=== PATIENT | female | born 1950 | race Caucasian/White ===

== ENCOUNTER 2017-09-07 07:06 | Day surgery (SDC) | payer OTHER ==
[~2017-09-07] VITALS: Ht 162.6 cm; Wt 65.5 kg
[~2017-09-07 07:06] MED LIST: IBUP200C70 PO; ZOC10 PO
[2017-09-07 07:40] VITALS: Ht 162.6 cm; Wt 65.5 kg
[2017-09-07] MEDS ORDERED: AMLO2.5T78 PO (07:52)
[2017-09-07] MEDS ORDERED: RANI150T5 PO (07:52)
[2017-09-07 08:03] VITALS: BP 140/70; PULSE 74; RESP 12
--- NOTE | 2017-09-07 08:53 | OPPN ---
Date/Time of Note Date/Time of Note DATE: 09/07/17 TIME: 08:52 Proc Note GI Procedure Date 09/07/17 Indication: treatment Pre-procedure Diagnosis Dysphagia Post-procedure Diagnosis Esophageal ring Procedure Performed: Endoscopy Surgeon see signature line Mattress Spring [place] none Anesthesia Type: moderate sedation Tourniquet Time none EBL none Transfusion required none Biopsy 1: 4 biopsies from the stomach, one biopsy from the esophagus Grafts/Implants none Tubes/Drains none Complication(s) none Disposition: PACU Procedure Description EGD with biopsy EGD with dilatation of the esophagus distal part up to 16 mm MANUEL NICE MD Sep 07, 2017 08:53
[2017-09-07] MEDS ORDERED: FENTAnyl 50 MCG/ML VIAL ONE (09:02)
[2017-09-07] MEDS ORDERED: MIDAZOLAM 1 MG/ML 2 ML INJ ONE ×3 (09:02)
[2017-09-07 09:15] VITALS: BP 114/55; RESP 18
--- NOTE | 2017-09-07 16:29 | GILP ---
DATE OF PROCEDURE: 09/07/2017 PROCEDURE PERFORMED: Esophagogastroduodenoscopy with biopsy and also esophageal dilatation. INDICATIONS: The patient is a 67-year-old female who complains of dysphagia. The purpose is to jaelyn luate upper GI tract and find out the cause of her dysphagia. The risks of the procedure, related a nd unrelated complications, sedative risks, alternatives discussed and informed consent was obtained . DESCRIPTION OF PROCEDURE: The patient was brought to the GI lab, sedated with Versed 5 mg, fentanyl 100 mg. After optimum sedation, scope was passed with much ease into esophagus. There was an incom plete ring about the GE junction. There was another ring at the GE junction with ulceration. Stoma ch mucosa revealed gastritis. Multiple biopsies obtained to rule out H. pylori infection. Retrover radha done, no growth was seen. Duodenum, first and second part including ampulla appeared normal. Scope was straightened out. The dilator CRE appropriately positioned, initially dilated up to 15 m m for half a minute. Balloon was deflated and we looked at the stricture which appeared dilated. T here was no bleeding. Then, we dilated up to 16 mm and it was done about 20 seconds. After deflati on, the ring was persistent, but definitely appeared dilated. Scope was thus removed with good madhu ent tolerance. IMPRESSION: 1. 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 Another at gastr oesophageal junction with ulceration on the ring. Source of ulceration on the ring. 2. Gastritis. 3. Normal duodenum. 4. Dilated ring up to 16 mm. PLAN: At this point is to continue proton pump inhibitor. We will review the histopathology and if dysphagia still persists, then we would probably break the ring with 4-quadrant biopsies. The patie nt needs to come to the office or follow up in 2 weeks. Dictated By: MANUEL ENRIQUEZ/RELL Conf#: [id number] DID#: [id number]
== END 2017-09-07 10:26 | disposition home or self-care (01) ==
LOC: GIL 07:06
PROVIDERS: ATTEND Internal Medicine Gastroenterology
DX: K22.2 Esophageal obstruction (principal); K29.70 Gastritis, unspecified, without bleeding
CPT/HCPCS: 43239; 43249; 88305; 88312; 88313; J2250; J3010